=== PATIENT | male | born 2005 | race Caucasian/White ===

== ENCOUNTER 2024-04-10 10:40 | Emergency (ER) | payer OTHER, SELFPAY ==
[2024-04-10 10:50] VITALS: BP 103/76
--- NOTE | 2024-04-10 11:34 | ED.GENMED ---
History of Present Illness
General
Chief Complaint: Head Injury
Time Seen by Provider: 04/10/24 11:09
History of Present Illness
History of Present Illness:
18-year-old male presents the emergency department for evaluation of a facial laceration sustained after being struck in the upper nose by a golf ball. There was no loss of consciousness. He reports mild dizziness without headache or vomiting
currently. Bleeding is controlled. Up-to-date on routine pediatric vaccinations
Review of Systems
Review of Systems
Allergies reviewed?: Yes
All Other Systems: ROS reviewed and negative except as documented in HPI and ROS
Phy Exam
Physical Exam
Physical Exam:
GEN: Well appearing, NAD, WDWN
HEENT: Oral mucosa moist, no scleral icterus. 2 cm vertical laceration to the left medial eyebrow extending to the forehead, small hematoma adjacent to the laceration
Cardiac: Regular rate
Lung: No respiratory distress, no tachypnea
MSK: No gross deformity or injuries
Skin: Good color, no pallor or jaundice, no rashes
Neuro: AO x3, cranial nerves II through XII grossly intact, moves all extremities freely
Psych: Calm, cooperative
Course
Vital Signs
Initial and Last Documented VS:
Initial Vital Signs
Temp Pulse Resp BP Pulse Ox
98.0 F 65 16 103/76 98
04/10/24 10:50 04/10/24 10:50 04/10/24 10:50 04/10/24 10:50 04/10/24 10:50
Last Documented Vital Signs
Temp Pulse Resp BP Pulse Ox
98.0 F 65 16 103/76 98
04/10/24 10:50 04/10/24 10:50 04/10/24 10:50 04/10/24 10:50 04/10/24 10:50
Procedures
Laceration Closure
Left Eye brow:
Status of Wound: clean
Size of Wound in cm: 2
Description of Wound Edges: sharp
Preparation: cleaned with saline
Anesthesia: 1% Lidocaine with epi
Wound exploration: explored to base- no FB
Type of Closure: layered closure and Dermabond-skin glue
Skin Closure Material: 5-0 chromic gut
Number of sutures: 2
MDM/Problems Addressed
MDM/Problems Addressed:
No clinical signs of intracranial injury. Wound repaired with subcuticular sutures and superficial glue
*Critical Care Note
Total Time (30-74mins, 75-104mins- exclusive of procedures): Not Applicable
ED Attending Note
-
Portions of this chart may have been created with voice recognition software.� Occasional wrong word or��sound alike� substitutions may have occurred due to the inherent limitations of voice recognition software.
Discharge Plan
Departure
Patient Disposition: Home (Routine Discharge)
Date of Disposition: 04/10/24
Time of Disposition: 11:34
Patient with high blood pressure during this ER visit?: No
Discharge Problem:
Forehead laceration
Instructions: Laceration Repair With Glue (DC)
Prescriptions:
No Action
ondansetron 4 MG tablet,disintegrating
4 mg PO Q8HPRN PRN (Reason: Nausea/Vomiting) Qty: 5 0RF
Activity Restrictions/Additional Instructions:
You have to internal self dissolving sutures and the remainder of the wound is closed with skin glue. The skin glue will gradually dissolve over 65 to 7 days. On occasion it takes longer than this and that is not a problem. Do not apply any
Neosporin or Vaseline type ointments to the wound as this will dissolve the glue. You may shower but do not scrub the wound. Avoid excessive sun exposure as this will lead to severe scarring
Interventions
Interventions:
*Risk Screen - Suicide Last Done: 04/10/24 10:50
*General Assessment Last Done: 04/10/24 11:45
*Neglect/Abuse Screening Last Done: 04/10/24 10:50
*Nursing Disposition Last Done: 04/10/24 11:45
ED- Neurological Assessment Last Done: 04/10/24 11:26
ED-Skin Assessment Last Done: 04/10/24 11:26
Discharge Date and Time
Discharge Date/Time: 04/10/24 11:45
Print Language: SPANISH
== END 2024-04-10 11:45 | disposition home or self-care (01) ==
LOC: EMR 10:40
PROVIDERS: EMERGENCY PHYSICIAN Emergency Medicine; FAMILY PHYSICIAN Physician Assistant Medical
DX: S01.81XA Laceration without foreign body of other part of head, initial encounter (principal); W21.04XA Struck by golf ball, initial encounter
CPT/HCPCS: 99282; 12011